=== PATIENT | male | born 1965 | race Caucasian/White ===

== ENCOUNTER 2022-06-27 17:54 | Emergency (ER) | payer MEDICAID ==
[~2022-06-27] VITALS: Ht 182.9 cm; Wt 97.7 kg
[2022-06-27] MEDS ORDERED: METF-1211 PO (17:58)
[2022-06-27] MEDS ORDERED: ATOR20TA65 PO (18:02)
[2022-06-27] MEDS ORDERED: LISI5TAB21 PO (18:02)
[2022-06-27 21:00] VITALS: BP 154/87
[2022-06-27] MEDS ORDERED: ACETAMINOPHEN 500 MG TABLET PO ONE (21:30)
[2022-06-27] MEDS ORDERED: IBUPROFEN 600 MG TABLET PO ONE (21:30)
[2022-06-27] MEDS ORDERED: IBUP-2070 PO (22:08)
[2022-06-27] MEDS ORDERED: BACL10TA PO (22:09)
== END 2022-06-27 21:50 | disposition home or self-care (01) ==
LOC: EMS 17:58
DX: M54.2 Cervicalgia (principal); E11.9 Type 2 diabetes mellitus without complications; F17.210 Nicotine dependence, cigarettes, uncomplicated; V89.2XXA Person injured in unspecified motor-vehicle accident, traffic, initial encounter; Y93.89 Activity, other specified; Y92.89 Other specified places as the place of occurrence of the external cause; Y99.8 Other external cause status
CPT/HCPCS: 72125; 99284; Z7502; Z7610